=== PATIENT | male | born 1995 | race Caucasian/White ===

== ENCOUNTER 2019-02-24 20:34 | Emergency (ER) | payer SELFPAY, BC ==
[2019-02-24] MEDS: KETOROLAC 30 MG INJ IM (21:20)
[2019-02-24] MEDS: HYDROCODONE/APAP (5/325) TAB PO (21:20)
== END 2019-02-24 23:55 | disposition home or self-care (01) ==
LOC: FTE 20:34
DX: S62.002A Unspecified fracture of navicular [scaphoid] bone of left wrist, initial encounter for closed fracture (principal); F17.210 Nicotine dependence, cigarettes, uncomplicated; V00.131A Fall from skateboard, initial encounter; Y92.9 Unspecified place or not applicable
CPT/HCPCS: 29125; 73110-LT; 96372; 99284-25